=== PATIENT | female | born 1965 | race Caucasian/White ===

== ENCOUNTER 2017-10-20 12:24 | Emergency (ER) | payer MEDICAID ==
[2017-10-20 14:19] LABS: URINE BLOOD (Dip) POC 3+ (NEGATIVE); URINE GLUCOSE (Dip) POC Negative (NEGATIVE); URINE KETONES (Dip) POC Negative (NEGATIVE); URINE LEUKOCYTE EST (Dip) POC 3+ (NEGATIVE); URINE NITRITE (Dip) POC Positive (NEGATIVE); URINE TOTAL PROTEIN POC 2+ (NEGATIVE)
[2017-10-20 14:19] LABS: URINE PH (Dip) POC 5.5 (5.0-8.5)
== END 2017-10-20 15:00 | disposition home or self-care (01) ==
LOC: FTE 12:24
DX: N39.0 Urinary tract infection, site not specified (principal); F17.210 Nicotine dependence, cigarettes, uncomplicated; R31.9 Hematuria, unspecified
CPT/HCPCS: 81003; 87086; 99283

== ENCOUNTER 2018-09-25 22:51 | Emergency (ER) | payer OTHER, MEDICAID ==
[2018-09-26] MEDS: KETOROLAC 60 MG INJ IM (03:04)
== END 2018-09-26 03:34 | disposition home or self-care (01) ==
LOC: FTE 22:51
DX: K08.89 Other specified disorders of teeth and supporting structures (principal); F17.210 Nicotine dependence, cigarettes, uncomplicated
CPT/HCPCS: 96372; 99284-25

== ENCOUNTER 2019-03-07 09:15 | Emergency (ER) | payer OTHER ==
[2019-03-07] MEDS: KETOROLAC 30 MG INJ IM (10:13)
== END 2019-03-07 10:20 | disposition home or self-care (01) ==
LOC: FTE 10:20
DX: K08.89 Other specified disorders of teeth and supporting structures (principal); F17.210 Nicotine dependence, cigarettes, uncomplicated
CPT/HCPCS: 81025; 99283